=== PATIENT | male | born 1940 | race Caucasian/White ===

== ENCOUNTER → 2016-07-06 | Outpatient (CLI) | payer MEDICARE, BC ==
[~2016-07-06] MED LIST: REGADENOSON 0.4 MG/5 ML DISP.SYRIN. IV ONE
== END | disposition home or self-care (01) ==
LOC: PCVCIMAG 08:29
PROVIDERS: ATTEND Internal Medicine Cardiovascular Disease
DX: I25.10 Atherosclerotic heart disease of native coronary artery without angina pectoris (principal); R07.9 Chest pain, unspecified; Z95.5 Presence of coronary angioplasty implant and graft
CPT/HCPCS: 78452; 93017; A9500; J2785

== ENCOUNTER → 2017-04-06 | Outpatient (CLI) | payer MEDICARE, BC | END | disposition home or self-care (01) | LOC: PCVCCLINIC 14:08 | DX: I25.10 Atherosclerotic heart disease of native coronary artery without angina pectoris (principal); I10 Essential (primary) hypertension; K21.9 Gastro-esophageal reflux disease without esophagitis; E78.00 Pure hypercholesterolemia, unspecified; Z79.899 Other long term (current) drug therapy | CPT/HCPCS: 93005; G0463 ==

== ENCOUNTER → 2017-10-25 | Outpatient (CLI) | payer MEDICARE, BC ==
--- NOTE | 2017-10-25 12:35 | PCVCIMAG ---
APPROVED REPORT Study performed: 10/25/2017 10:18:57 Exam: Stress Echocardiogram Indication: CAD s/p PCI, Hypertension Patient Location: Echo lab Stress Nurse: Vilma Harris RN Status: routine Ht: 5 ft 11 in HR: 68 bpm BP: 110/66 mmHg Rhythm: NSR W/ 1ST DEGREE AV BLOCK Procedure The patient underwent an Exercise Stress Test using the [place] Protocol. Blood pressure, heart rate, and EKG were monitored. An Echocardiogram was performed by regulatory and compliance technician in four stages in quad fashion. At peak stress, four selected images were obtained and placed side by side with resting images for comparison. Stress Test Details Stress Test: Exercise stress testing was performed using a [place] protocol. HR Resting HR: 68 bpmMax Heart Rate (APMHR): 141 bpm Max HR Achieved: 153 bpmTarget HR (85% APMHR): 119 bpm % of APMHR: 108 Recovery HR: 94 bpm HR response to stress: Normal HR response to stress BP Resting BP: 110/66 mmHg Max BP: 186/84 mmHg Recovery BP: 142/82 mmHg ECG Resting ECG: Sinus Rhythm, 1st degree AV block Stress ECG: Sinus Rhythm ST Change: Normal Arrhythmia: None Recovery ECG: Sinus Rhythm Recovery ST Change: Normal Recovery Arrhythmia: None Clinical Reason for Termination: Maximal effort Exercise duration: 12 min sec Highest Stage Achieved: Stage 4: 4.2 mph at 16% grade. Exercise capacity: 13.7 METs Overall Exercise Capacity for Age: Excellent Scale: Active Angina Score: None Pre-Stress Echo The resting Echocardiogram showed normal left ventricular contractility with an estimated Ejection Fraction of about >55%. Normal wall motion in all segments on baseline images. Post-Stress Echo The stress Echocardiogram showed normal left ventricular contractility with an estimated Ejection Fraction of about 65%. Subtle inferior basal hypokinesis with overall normal ejection fraction. Clinical No clinical or ECG evidence for ischemia. Conclusion Clinical Response: Non-ischemic Exercise Capacity: Superior Stress ECG Response: Non-ischemic Stress Echo Images: Ischemic The left ventricle is normal in size and wall thickness in both the rest and stress images. Subtle inferior basal hypokinesis in post exercise imaging. Other Information Study Quality: Good <Conclusion> The left ventricle is normal in size and wall thickness in both the rest and stress images. Subtle inferior basal hypokinesis in post exercise imaging.
== END | disposition home or self-care (01) ==
LOC: PCVCIMAG 10:14
PROVIDERS: ATTEND Internal Medicine Cardiovascular Disease
DX: I25.10 Atherosclerotic heart disease of native coronary artery without angina pectoris (principal); I10 Essential (primary) hypertension
CPT/HCPCS: 93005; 93325; 93351; G0463

== ENCOUNTER → 2017-11-02 | Outpatient (CLI) | payer MEDICARE, BC ==
[~2017-11-02] MED LIST changes: +ASPIRIN 325 MG TABLET ONE; +CLOPIDOGREL BISULFATE 75 MG TABLET ONE; +DIAZEPAM 10 MG TABLET. ONE; +HEPARIN SODIUM 5,000 UNIT/ML VIAL for PCVC. ONE; +HEPARIN for ARTERIAL LINE 1,500 ML ONE; +IODIXANOL 270 MG/ML 100 ML VIAL. ONE; +IOHEXOL 350 MG/ML 100 ML VIAL. ONE; +IV NORMAL SALINE 1000ML BAG 1,000 ML ONE; +LIDOCAINE 1%/EPI 1:100,000 20 ML VIAL. ONE; +MIDAZOLAM HCL/PF 2 MG/2 ML VIAL. ONE; -REGADENOSON 0.4 MG/5 ML DISP.SYRIN. IV ONE; +WATER FOR INJECTION,STERILE 10 ML IJ ONE; +ceFAZolin SODIUM 1 GM VIAL ONE; +fentaNYL PF VIAL 100 MCG/2 ML VIAL ONE; +hydrALAZINE 20 MG/ML VIAL. ONE
--- NOTE | 2017-11-02 12:56 | PCVCINTER ---
APPROVED REPORT Study performed: 11/02/2017 09:05:09 Patient Details Patient Status: Out-Patient Room #: 2 The patient is a 77 year-old Male Event Personnel Belia Coronado RN, Hu Haskins RT(R)(), Daniel Marte RT(R) Risk Factors Arterial HypertensionDysplipidemia (Type: 1), Peripheral Vascular Disease, Hypercholesterolemia, Last Creatanine 1 Previous Procedures/Diagnoses Previous PCI, Previous Femoral Procedure Procedure Narrative A 6 sheath was inserted into the right femoral artery. Coronary angiography was performed using coronary diagnostic catheters. The right coronary system was accessed and visualized with a 3DRC catheter. The left coronary system was accessed and visualized with a JL4 catheter. The left ventricle was accessed and visualized with a Straight Pigtail catheter. Left ventriculogram was performed in RIVERA projection. Closure device was deployed with a 6 Fr FISH. Hemostasis was obtained with manual pressure following sheath removal without any complications. The patient tolerated the procedure well and there were no complications associated with the procedure. There was no hematoma. Conclusion #1 normal left ventricular size and systolic function EF 60-65% #2 left main moderate size free of disease giving rise to LAD and circumflex #3 ostial LAD is a 50-60% narrowing with mild disease in the proximal stent it 20% in-stent diffuse disease distally type I LAD it ends short of the apex #4 circumflex OM with a 30%-40% proximal lesion giving rise to moderate size OM and distal circumflex. #5 early calcified and possibly stented ostial RCA 60-70% narrowed with the proximal RCA also stented has moderate restenosis 50-60% the ostium 4050% proximal mid vessel that is just distal to a mid vessel stent. Recommendations and plan we'll continue aggressive risk factor modification will keep a close eye on this ostial RCA disease which is moderately heavily calcified and I believe in-stent. Follow post peripheral stent protocol. Follow-up will be arranged
--- NOTE | 2017-11-04 08:02 | PCVCINTER ---
EXAM: 1. AORTOGRAM AND BILATERAL LOWER EXTREMITY RUNOFF ANGIOGRAM 2. BILATERAL RENAL ANGIOGRAPHY 3. LEFT SUPERFICIAL FEMORAL ARTERY ATHERECTOMY AND STENT PLACEMENT. 4. SECONDARY THROMBECTOMY LEFT SUPERFICIAL FEMORAL ARTERY. INDICATION: Peripheral arterial disease. Coronary artery disease. Nonhealing ulcer left lower extremity. Hypertension. Renal atherosclerosis. No prior catheter based angiographic study is available. A full diagnostic angiogram study is performed today and the decision to intervene is based on this diagnostic study. PROCEDURE: Procedure and risks of angiography intervention is appropriate including limb loss stroke and were discussed with the patient's family and consent obtained. The patient's right groin was prepped in the normal sterile fashion. IV conscious sedation was used throughout procedure with appropriate monitoring from 9:00 AM through 10:00 AM. Ultrasound was used to interrogate the right groin and showed the right common femoral artery to be patent. A permanent spot film was obtained. Under ultrasound guidance access into the right common femoral artery was obtained and a 5 Maldivian sheath was placed. Through this a 5 Maldivian flush catheter was placed into the abdominal aorta at the level of the renal arteries and AP aortogram was performed. Catheter was positioned at the aortic bifurcation and both oblique views of the pelvis were obtained. Catheter was positioned into the right external iliac artery and right leg runoff angiography was performed. Catheter was exchanged for a visceral catheter was placed into the right renal arteries and right renal angiograms obtained. Catheter was placed into the the left renal arteries and left renal angiograms were obtained. Catheter was advanced to the level of the left external iliac artery and left leg runoff angiography was obtained. Patient was given 4500 units of heparin. A 6 Maldivian crossover sheath was placed via the right groin to the level of the left common femoral artery. Atherectomy of the left superficial femoral artery was performed with 2.0 mm Cross Current laser atherectomy catheter in the standard fashion. Following atherectomy small areas of thrombus were observed and because of this secondary thrombectomy throughout the left superficial femoral artery was carried out with mechanical suction thrombectomy catheter in the standard fashion. Minimal debris was removed. Stent placement across the areas of high-grade stenosis in the left superficial femoral artery was carried out with a 6 x 60 Smart control stent with subsequent dilatation to 6.0 mm. Follow-up angiogram was performed. Catheters and wires removed. Sheath was removed and hemostasis obtained using the FISH device. No immediate complications. FINDINGS: Aortogram: There are 2 right and 2 left renal arteries. Mild plaque infrarenal abdominal aorta without significant stenosis. Pelvis: Right and left common and external iliac arteries are patent. Both internal iliac arteries are patent. The right and left common femoral and profunda femoral arteries are patent. Right renal artery: There are 2 renal arteries. The more superior renal artery shows mild plaque at its origin without significant stenosis. The more inferior renal artery is a small accessory renal artery and has a 70% stenosis at its origin. This vessel however is only approximately 2.0 mm in size.. Left renal artery: There are 2 renal arteries. Both show mild plaque at their origins without significant stenosis. Right leg: Moderate plaque throughout the superficial femoral artery and popliteal artery without significant stenosis. The anterior tibial artery shows adequate patency throughout. Distal tibioperoneal trunk shows 60% focal stenosis. The posterior tibial and peroneal arteries show adequate patency throughout. Left leg: Extensive irregular plaque mid to distal superficial femoral artery results in 80% stenosis. The popliteal artery shows minimal stenosis distally. The posterior tibial artery shows good patency throughout. The peroneal artery is patent. Couple of areas of moderate stenosis in the upper anterior tibial artery which then is continuous to at least the ankle. Left superficial femoral artery: Following procedure as above vessel shows good patency. IMPRESSION: 80% stenosis mid/distal left superficial femoral artery was treated as above with good patency restored. 60% stenosis distal right tibioperoneal trunk not felt to be critically flow-limiting. LOC:[id number]
== END ==
LOC: PCVCINTER 12:11
PROVIDERS: ATTEND Internal Medicine Cardiovascular Disease
DX: I25.10 Atherosclerotic heart disease of native coronary artery without angina pectoris (principal); I70.248 Atherosclerosis of native arteries of left leg with ulceration of other part of lower leg; E78.5 Hyperlipidemia, unspecified; E78.00 Pure hypercholesterolemia, unspecified; I10 Essential (primary) hypertension; I70.1 Atherosclerosis of renal artery
CPT/HCPCS: 36252; 37186; 37227; 75716; 76937; 93458; C1725; C1751; C1757; C1760; C1769; C1876; C1885; C1887; C1894; J0690; J1644; J2250; J3010; J3490; J7030; Q9967; 99152; 99153; J0360

== ENCOUNTER → 2018-01-24 | Outpatient (CLI) | payer MEDICARE, BC ==
--- NOTE | 2018-01-24 10:21 | PCVCIMAG ---
EXAM: BILATERAL LOWER EXTREMITY ARTERIAL DUPLEX INDICATION: Peripheral Arterial Disease. Leg pain. FINDINGS: Right Leg: Satisfactory arterial waveforms throughout the common/profunda/superficial femoral, popliteal, anterior tibial, peroneal, and posterior tibial arteries. No flow limiting stenosis seen. Left Leg: Satisfactory arterial waveforms throughout the common/profunda/superficial femoral, popliteal, anterior tibial, peroneal, and posterior tibial arteries. No flow limiting stenosis seen. Previous distal superficial femoral artery stent maintaining satisfactory patency. IMPRESSION: No flow limiting stenosis in the right lower extremity. No flow limiting stenosis in the left lower extremity. Previous left superficial femoral artery stent maintaining satisfactory patency. LOC:[id number]
--- NOTE | 2018-01-24 10:30 | PCVCIMAG ---
EXAM: NONINVASIVE ARTERIAL EXAMINATION OF BOTH LOWER EXTREMITIES INCLUDING PRE AND POST EXERCISE PRESSURE MEASUREMENTS AND DOPPLER WAVEFORMS INDICATION: Peripheral Arterial Disease. Leg pain. FINDINGS: Right Brachial: 124 mm Hg. Right Dorsalis Pedis: 116 mm Hg. Right Posterior Tibial: 119 mm Hg. Right SILVANO = 0.96. Left Brachial: 114 mm Hg. Left Dorsalis Pedis: 97 mm Hg. Left Posterior Tibial: 120 mm Hg. Left SILVANO = 0.97. Post Exercise: Right Brachial 118 mm Hg. Right Posterior Tibial: 110 mm Hg. Left Posterior Tibial: 147 mm Hg. Right SILVANO = 0.93. Left SILVANO = 1.25. IMPRESSION: No resting ischemia in the right lower extremity. No exercise induced ischemia in the right lower extremity. No resting ischemia in the left lower extremity. No exercise induced ischemia in the left lower extremity. LOC:[id number]
== END | disposition home or self-care (01) ==
LOC: PCVCIMAG 07:29
PROVIDERS: ATTEND Nuclear Medicine Nuclear Cardiology
DX: I73.9 Peripheral vascular disease, unspecified (principal); I77.9 Disorder of arteries and arterioles, unspecified; I25.10 Atherosclerotic heart disease of native coronary artery without angina pectoris; I10 Essential (primary) hypertension; E78.00 Pure hypercholesterolemia, unspecified; K21.9 Gastro-esophageal reflux disease without esophagitis; Z79.82 Long term (current) use of aspirin
CPT/HCPCS: 93923; 93925; G0463; 93924

== ENCOUNTER → 2018-08-15 | Outpatient (CLI) | payer MEDICARE, BC ==
--- NOTE | 2018-08-15 11:04 | PCVCIMAG ---
EXAM: BILATERAL LOWER EXTREMITY ARTERIAL DUPLEX INDICATION: Peripheral Arterial Disease. Leg pain. FINDINGS: Right Leg: Satisfactory arterial waveforms throughout the common/profunda/superficial femoral, popliteal, anterior tibial, peroneal, and posterior tibial arteries. No flow limiting stenosis seen. Left Leg: Common femoral and profunda femoral arteries are patent. Superficial femoral artery and popliteal artery are patent. Previous stent distal superficial femoral artery remains patent. The anterior tibial, peroneal, and posterior tibial arteries are patent. IMPRESSION: No flow limiting stenosis in the right lower extremity. No flow limiting stenosis in the left lower extremity. Previous stent distal left superficial femoral artery remains patent. LOC:[id number]
== END | disposition home or self-care (01) ==
LOC: PCVCIMAG 09:16
PROVIDERS: ATTEND Internal Medicine Cardiovascular Disease
DX: I65.23 Occlusion and stenosis of bilateral carotid arteries (principal); I73.9 Peripheral vascular disease, unspecified; I25.10 Atherosclerotic heart disease of native coronary artery without angina pectoris; I10 Essential (primary) hypertension; E78.00 Pure hypercholesterolemia, unspecified; I77.9 Disorder of arteries and arterioles, unspecified; K21.9 Gastro-esophageal reflux disease without esophagitis; Z79.82 Long term (current) use of aspirin
CPT/HCPCS: 36415; 80061; 93005; 93880; 93925; G0463

== ENCOUNTER → 2019-01-31 | Outpatient (CLI) | payer MEDICARE, BC ==
--- NOTE | 2019-01-31 15:40 | PCVCIMAG ---
APPROVED REPORT Study performed: 01/31/2019 14:52:27 Exam: Stress Echocardiogram Indication: CAD s/p PCI, htn, hlp, peripheral artery disease Patient Location: Echo lab Stress Nurse: Yenifer Espinal RN Status: routine Ht: 5 ft 11 in HR: 74 bpm BP: 130/92 mmHg Rhythm: NSR Procedure The patient underwent an Exercise Stress Test using the [place] Protocol. Blood pressure, heart rate, and EKG were monitored. An Echocardiogram was performed by crop and soil technician in four stages in quad fashion. At peak stress, four selected images were obtained and placed side by side with resting images for comparison. Stress Test Details Stress Test: Exercise stress testing was performed using a [place] protocol. HR Resting HR: 74 bpmMax Heart Rate (APMHR): 140 bpm Max HR Achieved: 160 bpmTarget HR (85% APMHR): 119 bpm % of APMHR: 114 Recovery HR: 96 bpm HR response to stress: Normal HR response to stress BP Resting BP: 130/92 mmHg Max BP: 192/82 mmHg Recovery BP: 166/82 mmHg BP response to stress: Normal blood pressure response to stress. ECG Resting ECG: Sinus Rhythm w/ PVCs Stress ECG: Sinus Rhythm ST Change: Nonspecific ST changes Arrhythmia: frequent PVCs Recovery ECG: Sinus Rhythm w/ PVCs Recovery ST Change: Nonspecific ST changes Recovery Arrhythmia: frequent PVCs Clinical Reason for Termination: Maximal effort Stress Symptoms: Leg Fatigue Exercise duration: 12 min sec Highest Stage Achieved: Stage 4: 4.2 mph at 16% grade. Exercise capacity: 13.4 METs Overall Exercise Capacity for Age: Excellent Scale: Active Angina Score: None Pre-Stress Echo The resting Echocardiogram showed normal left ventricular contractility with an estimated Ejection Fraction of about >55%. The resting echocardiogram demonstrated normal wall motion in all wall segments. Post-Stress Echo The stress Echocardiogram showed left ventricular contractility with an estimated Ejection Fraction of about 65%. Compared to rest, there were no stress-induced wall motion abnormalities. Clinical No clinical or ECG evidence for ischemia. Conclusion Clinical Response: Non-ischemic Exercise Capacity: Superior Stress ECG Response: Non-ischemic Stress Echo Images: Non-ischemic The left ventricle is normal in size and wall thickness in both the rest and stress images. Mild-moderate mitral regurgitation. Mild tricuspid regurgitation with PAP of 33 mmHg. Normal aortic and pulmonic valves. Other Information Study Quality: Adequate <Conclusion> The left ventricle is normal in size and wall thickness in both the rest and stress images. Mild-moderate mitral regurgitation. Mild tricuspid regurgitation with PAP of 33 mmHg. Normal aortic and pulmonic valves.
--- NOTE | 2019-01-31 18:11 | PCVCIMAG ---
EXAM: BILATERAL LOWER EXTREMITY ARTERIAL DUPLEX INDICATION: Peripheral Arterial Disease. Leg pain. FINDINGS: Right Leg: Satisfactory arterial waveforms throughout the common/profunda/superficial femoral, popliteal, anterior tibial, peroneal, and posterior tibial arteries. No flow limiting stenosis seen. Left Leg: Satisfactory arterial waveforms throughout the common/profunda/superficial femoral, popliteal, anterior tibial, peroneal, and posterior tibial arteries. No flow limiting stenosis seen. Prior stent distal superficial femoral artery is patent. IMPRESSION: No flow limiting stenosis in the right lower extremity. No flow limiting stenosis in the left lower extremity. Prior stent distal left superficial femoral artery is patent. LOC:[id number]
== END | disposition home or self-care (01) ==
LOC: PCVCIMAG 14:04
PROVIDERS: ATTEND Internal Medicine Cardiovascular Disease
DX: I25.10 Atherosclerotic heart disease of native coronary artery without angina pectoris (principal); E78.5 Hyperlipidemia, unspecified; I73.9 Peripheral vascular disease, unspecified; E78.00 Pure hypercholesterolemia, unspecified
CPT/HCPCS: 93325; 93351; 93925